=== PATIENT | female | born 1950 | race Caucasian/White ===

== ENCOUNTER → 2022-07-21 09:40 | Outpatient (CLI) | payer MEDICARE, SELFPAY ==
[2022-07-21 11:41] LABS: COVID19 -Nasal RAPID Negative (Negative)
== END ==
PROVIDERS: PCP Specialist; Referring Provider Internal Medicine; Visit Provider Internal Medicine
DX: Z20.822 Contact with and (suspected) exposure to COVID-19 (principal)
CPT/HCPCS: 87635; C9803

== ENCOUNTER → 2022-07-21 09:44 | Outpatient (CLI) | payer MEDICARE, SELFPAY ==
--- NOTE | 2022-07-31 14:05 | PM.PFT.1 ---
Pulmonary Function Test Referral & Results Date Patient Seen: 07/21/22 Requesting provider: Johanna Sadler Results: The spirometry demonstrates an FVC of 2.82 L which is 81% of predicted. The FEV1 was measured at 2.33 L which is 88% of predicted. The FEV1/FVC ratio was 83 which is 108% of predicted. Following the administration of bronchodilator there was a 17% improvement in FEF 25-75%. Lung volumes show an SVC of 2.82 L which is 86% of predicted. The diffusing capacity was measured at 25.13 which is 84% of predicted. The maximum voluntary ventilation was normal Interpretation: This study is probably normal. There may be minimal obstructive lung disease based mostly on the very minimal improvement after bronchodilator although I would personally consider this normal Overall this is a study that demonstrates normal pulmonary function in my opinion.
== END ==
PROVIDERS: PCP Specialist; Referring Provider Specialist; Visit Provider Specialist
DX: R09.89 Other specified symptoms and signs involving the circulatory and respiratory systems (principal); Z20.822 Contact with and (suspected) exposure to COVID-19
CPT/HCPCS: 87635; 94060; 94726; 94729; C9803